=== PATIENT | female | born 1975 | race Caucasian/White ===

== ENCOUNTER → 2023-08-30 | Outpatient (CLI) | payer OTHER ==
[~2023-08-30] MED LIST: HYDR2TAB8 PO; NOCURR
== END | disposition home or self-care (01) ==
LOC: RADMN 12:33
PROVIDERS: ATTEND Internal Medicine
DX: R76.11 Nonspecific reaction to tuberculin skin test without active tuberculosis (principal)
CPT/HCPCS: 71045